=== PATIENT | male | born 1995 | race Hispanic/Latino ===

== ENCOUNTER 2023-11-24 20:20 | Inpatient (IN) | payer OTHER ==
[~2023-11-24] VITALS: Ht 167.6 cm; Wt 62.4 kg
[2023-11-24 21:14] LABS: HEMATOCRIT 44.9 % (42.0-52.0); HEMOGLOBIN 15.7 g/dl (13.5-17.5); MEAN CORPUSCULAR HEMOGLOBIN 29.2 pg (27.0-33.0); MEAN CORPUSCULAR VOLUME 83.6 fl (80.0-96.0); PLATELET COUNT, AUTOMATED 231 10^3/uL (150-450); RED BLOOD COUNT 5.37 10^6/uL (4.30-6.10); WHITE BLOOD COUNT 8.9 10^3/uL (4.0-10.0)
[2023-11-24] MEDS ORDERED: MAALOX 30 ML SUSP *UDC PO ONE (21:25)
[2023-11-24 21:37] LABS: AMPHETAMINES LEVEL URINE NEGATIVE (NEGATIVE); BARBITURATES URINE NEGATIVE (NEGATIVE); BENZODIAZEPINES URINE NEGATIVE (NEGATIVE); COCAINE METABOLITE URINE NEGATIVE (NEGATIVE); METHADONE URINE NEGATIVE (NEGATIVE); OPIATES URINE NEGATIVE (NEGATIVE); PHENCYCLIDINE URINE NEGATIVE (NEGATIVE)
[2023-11-24 21:38] LABS: CANNABINOIDS URINE POSITIVE (NEGATIVE)
[2023-11-24 21:40] LABS: ETHYL ALCOHOL (ETHANOL) < 0.003 % (0.000-0.010)
[2023-11-24 21:42] LABS: ALBUMIN 4.6 G/DL (3.2-5.2); ALKALINE PHOSPHATASE 57 U/L (46-116); ALT/SGPT 26 U/L (7.0-40); AST/SGOT 28 U/L (<34); BILIRUBIN,DIRECT 0.4 MG/DL (<0.4); BILIRUBIN,TOTAL 1.1 MG/DL (0.3-1.2); BLOOD UREA NITROGEN 12 MG/DL (9-23); CALCIUM LEVEL 9.1 MG/DL (8.5-10.1); CARBON DIOXIDE LEVEL 23 MMOL/L (20-31); CHLORIDE LEVEL 109 MMOL/L (98-107); CREATININE FOR GFR 0.79 MG/DL (0.70-1.30); GLOMERULAR FILTRATION RATE > 60.0 (>60); GLUCOSE, FASTING 97 MG/DL (60-100); POTASSIUM SERUM 3.5 MMOL/L (3.5-5.1); SALICYLATE LEVEL < 3.0 MG/DL (<30); SODIUM LEVEL 140 MMOL/L (136-145); TOTAL PROTEIN 7.5 G/DL (5.7-8.2)
[2023-11-24 21:44] LABS: THYROID STIMULATING HORMONE 1.359 uIU/ML (0.55-4.78)
[2023-11-24 22:09] LABS: HIV 1&2 SCREEN NEGATIVE (NEGATIVE)
[2023-11-25] MEDS ORDERED: PANTOPRAZOLE 40MG TAB (PROTONIX) PO ONE (03:50)
[2023-11-25] MEDS ORDERED: SUCRALFATE SUSP 1GM/10ML UD PO ONE (03:50)
[2023-11-25] MEDS ORDERED: TRAZ-186 PO (06:38)
[2023-11-25] MEDS ORDERED: SUMA25TA3 PO (06:38)
[2023-11-25] MEDS ORDERED: DICY20TA20 PO (06:38)
[2023-11-25] MEDS ORDERED: EQL1CAP9 PO (06:38)
[2023-11-25] MEDS ORDERED: HOME MED LIST COMPLETE! XX SCH (06:40)
[2023-11-25] MEDS ORDERED: ACETAMINOPHEN TAB 650MG DOSE (2X325MG) PO PRN (15:25)
[2023-11-25] MEDS ORDERED: MAALOX 30 ML SUSP *UDC PO PRN (15:25)
[2023-11-25] MEDS ORDERED: IBUPROFEN 400MG TAB PO PRN (15:25)
[2023-11-25] MEDS ORDERED: DICYCLOMINE 10 MG CAP PO ONE (19:55)
[2023-11-25 21:31] VITALS: BP 116/77; TEMP 98.5; O2SAT 97
[2023-11-25] MEDS: MOM 30ML SUSPENSION UDC PO PRN (22:35)
[2023-11-26 06:14] VITALS: BP 132/80; TEMP 98.6; O2SAT 99
[2023-11-26] MEDS: LACTOBACILLUS ACIDOPHILUS CAP (BACID) PO SCH (10:11)
[2023-11-26] MEDS: DICYCLOMINE 10 MG CAP PO PRN (10:31)
[2023-11-26] MEDS: OMEPRAZOLE 20MG CAP PO SCH (13:08)
[2023-11-26 16:12] VITALS: BP 115/71; TEMP 98.9; O2SAT 100
[2023-11-26] MEDS ORDERED: MIRALAX *UNIT DOSE* 17GM PACKET PO PRN (17:05)
[2023-11-26] MEDS: DOCUSATE SODIUM 100MG CAPSULE PO PRN (17:12)
[2023-11-26] MEDS: PRAZOSIN 1 MG CAP PO SCH (21:21)
[2023-11-26] MEDS: traZODone 50 MG TAB PO PRN (21:21)
[2023-11-26] MEDS: SERTRALINE HCL 50 MG TAB PO SCH (21:21)
[2023-11-27 03:35] VITALS: BP 158/90; TEMP 97.6; O2SAT 98
[2023-11-27] MEDS ORDERED: LORazepam 0.5 MG TAB PO ONE (04:00)
[2023-11-27] MEDS ORDERED: ONDANSETRON 4MG ORAL DISINTEGRATING TAB SL ONE (04:00)
[2023-11-27] MEDS ORDERED: ONDANSETRON 4MG ORAL DISINTEGRATING TAB SL PRN (04:15)
[2023-11-27 06:17] VITALS: BP 119/58; TEMP 98.1
[2023-11-27] MEDS: OMEPRAZOLE 20MG CAP PO SCH (08:32)
[2023-11-27] MEDS: LACTOBACILLUS ACIDOPHILUS CAP (BACID) PO SCH (08:32)
[2023-11-27] MEDS: DICYCLOMINE 10 MG CAP PO PRN ×2 (09:47→20:47)
[2023-11-27] MEDS: diphenhydrAMINE 25MG CAP PO PRN ×2 (14:05→20:48)
[2023-11-27 15:45] VITALS: BP 117/63; TEMP 98.6; O2SAT 100
[2023-11-27] MEDS: traZODone 50 MG TAB PO PRN (20:49)
[2023-11-27] MEDS: PRAZOSIN 1 MG CAP PO SCH (20:49)
[2023-11-27] MEDS: SERTRALINE HCL 50 MG TAB PO SCH (21:00)
[2023-11-28 06:07] VITALS: BP 135/62; TEMP 97.9; O2SAT 100
[2023-11-28] MEDS: DICYCLOMINE 10 MG CAP PO PRN ×3 (08:25→21:30)
[2023-11-28] MEDS: LACTOBACILLUS ACIDOPHILUS CAP (BACID) PO SCH (08:25)
[2023-11-28] MEDS: OMEPRAZOLE 20MG CAP PO SCH (08:25)
[2023-11-28] MEDS: diphenhydrAMINE 25MG CAP PO PRN ×3 (08:25→21:16)
[2023-11-28] MEDS ORDERED: SERTRALINE HCL 50 MG TAB PO ONE (12:40)
[2023-11-28 16:59] VITALS: BP 147/91; TEMP 97.5; O2SAT 94
[2023-11-28] MEDS: DOCUSATE SODIUM 100MG CAPSULE PO PRN (17:35)
[2023-11-28] MEDS: traZODone 50 MG TAB PO PRN (21:15)
[2023-11-28] MEDS: PRAZOSIN 1 MG CAP PO SCH (21:15)
[2023-11-28] MEDS: SUMAtriptan SUCCINATE 25 MG TAB PO PRN (21:17)
[2023-11-29 06:31] VITALS: BP 125/78; TEMP 98.9; O2SAT 96
[2023-11-29] MEDS: SERTRALINE HCL 50 MG TAB PO SCH (08:30)
[2023-11-29] MEDS: LACTOBACILLUS ACIDOPHILUS CAP (BACID) PO SCH (08:30)
[2023-11-29] MEDS: OMEPRAZOLE 20MG CAP PO SCH (08:30)
[2023-11-29] MEDS: DICYCLOMINE 10 MG CAP PO PRN ×2 (08:31→14:58)
[2023-11-29] MEDS: diphenhydrAMINE 25MG CAP PO PRN (08:31)
[2023-11-29] MEDS: busPIRone 5 MG TAB PO SCH ×2 (09:48→20:15)
[2023-11-29] MEDS: DOCUSATE SODIUM 100MG CAPSULE PO PRN (14:58)
[2023-11-29 19:06] VITALS: BP 140/88; TEMP 98.4; O2SAT 100
[2023-11-29] MEDS: PRAZOSIN 1 MG CAP PO SCH (20:15)
[2023-11-29] MEDS: traZODone 50 MG TAB PO PRN (20:16)
[2023-11-29] MEDS: SUMAtriptan SUCCINATE 25 MG TAB PO PRN (20:52)
[2023-11-30] MEDS: diphenhydrAMINE 25MG CAP PO PRN ×2 (01:58→18:29)
[2023-11-30 06:35] VITALS: BP 141/78; TEMP 99.8; O2SAT 98
[2023-11-30] MEDS: LACTOBACILLUS ACIDOPHILUS CAP (BACID) PO SCH (08:03)
[2023-11-30] MEDS: busPIRone 5 MG TAB PO SCH (08:03)
[2023-11-30] MEDS: SERTRALINE HCL 50 MG TAB PO SCH (08:03)
[2023-11-30] MEDS: DOCUSATE SODIUM 100MG CAPSULE PO PRN (08:03)
[2023-11-30] MEDS: OMEPRAZOLE 20MG CAP PO SCH (08:03)
[2023-11-30] MEDS ORDERED: SENNA 8.6 MG TAB (SENOKOT) PO ONE (09:00)
[2023-11-30] MEDS: DICYCLOMINE 10 MG CAP PO PRN (14:01)
[2023-11-30 19:01] VITALS: BP 143/79; TEMP 98.7
[2023-11-30] MEDS: busPIRone 10 MG TAB PO SCH (21:26)
[2023-11-30] MEDS: traZODone 50 MG TAB PO PRN (21:26)
[2023-11-30] MEDS: PRAZOSIN 1 MG CAP PO SCH (21:27)
[2023-12-01 06:06] VITALS: BP 119/69; TEMP 98.5; O2SAT 100
[2023-12-01] MEDS: LACTOBACILLUS ACIDOPHILUS CAP (BACID) PO SCH (08:29)
[2023-12-01] MEDS: DICYCLOMINE 10 MG CAP PO PRN ×2 (08:30→16:38)
[2023-12-01] MEDS: OMEPRAZOLE 20MG CAP PO SCH (08:30)
[2023-12-01] MEDS: SERTRALINE HCL 50 MG TAB PO SCH (08:30)
[2023-12-01] MEDS: busPIRone 10 MG TAB PO SCH ×2 (08:30→21:21)
[2023-12-01] MEDS ORDERED: OMEP-173 PO (09:58)
[2023-12-01] MEDS ORDERED: SERT50TA29 PO (09:58)
[2023-12-01] MEDS ORDERED: DICY20TA20 PO (09:58)
[2023-12-01] MEDS ORDERED: EQL1CAP9 PO (09:58)
[2023-12-01] MEDS ORDERED: SUMA25TA3 PO (09:58)
[2023-12-01] MEDS ORDERED: DIPH-435 PO (09:58)
[2023-12-01] MEDS ORDERED: MIRA1POW3 PO (09:58)
[2023-12-01] MEDS ORDERED: TRAZ-186 PO (09:58)
[2023-12-01] MEDS ORDERED: BUSP10TA PO (09:58)
[2023-12-01] MEDS ORDERED: COLA100C5 PO (09:58)
[2023-12-01] MEDS ORDERED: PRAZ2CAP PO (09:58)
[2023-12-01] MEDS: MOM 30ML SUSPENSION UDC PO PRN (13:12)
[2023-12-01] MEDS: diphenhydrAMINE 25MG CAP PO PRN (15:37)
[2023-12-01 16:46] VITALS: BP 132/82; TEMP 98.4; O2SAT 97
[2023-12-01 21:21] VITALS: BP 132/82
[2023-12-01] MEDS: PRAZOSIN 1 MG CAP PO SCH (21:21)
[2023-12-01] MEDS: traZODone 50 MG TAB PO PRN (21:21)
[2023-12-02 06:41] VITALS: BP 126/76; TEMP 98.9
[2023-12-02] MEDS: busPIRone 10 MG TAB PO SCH (08:17)
[2023-12-02] MEDS: OMEPRAZOLE 20MG CAP PO SCH (08:17)
[2023-12-02] MEDS: DICYCLOMINE 10 MG CAP PO PRN (08:17)
[2023-12-02] MEDS: LACTOBACILLUS ACIDOPHILUS CAP (BACID) PO SCH (08:17)
[2023-12-02] MEDS: SERTRALINE HCL 50 MG TAB PO SCH (08:17)
== END 2023-12-02 10:59 | disposition home or self-care (01) | DRG 882 ==
LOC: EDBD 20:20 → M ED 20:20 → M ED INP 11-25 15:23 → M PSY 11-25 21:28
PROVIDERS: ADMIT Student in an Organized Health Care Education/Training Program; ATTEND Student in an Organized Health Care Education/Training Program
DX: F43.10 Post-traumatic stress disorder, unspecified (principal); R45.851 Suicidal ideations; F33.2 Major depressive disorder, recurrent severe without psychotic features; F17.200 Nicotine dependence, unspecified, uncomplicated; F12.90 Cannabis use, unspecified, uncomplicated; Z79.899 Other long term (current) drug therapy; K21.9 Gastro-esophageal reflux disease without esophagitis; G43.909 Migraine, unspecified, not intractable, without status migrainosus; K58.8 Other irritable bowel syndrome

== ENCOUNTER 2024-09-02 01:51 | Emergency (ER) | payer OTHER ==
[~2024-09-02] VITALS: Ht 170.2 cm; Wt 65.9 kg
[~2024-09-02 01:51] MED LIST: BUSP10TA PO; COLA100C5 PO; DICY20TA20 PO; DIPH-435 PO; EQL1CAP9 PO; MIRA33506 PO; OMEP-173 PO; PRAZ2CAP PO; SERT50TA29 PO; SUMA25TA3 PO; TRAZ-186 PO
[2024-09-02 01:56] VITALS: TEMP 97.1
[2024-09-02 02:35] LABS: BASO % 0.3 % (0.0-1.0); EOS # 0.1 10^3/uL (0.0-0.5); EOS % 1.5 % (0.0-3.0); HEMATOCRIT 42.1 % (42.0-52.0); HEMOGLOBIN 14.5 g/dl (13.5-17.5); LYMPH # 3.4 10^3/uL (1.5-5.0); LYMPH % 37.3 % (24.0-44.0); MEAN CORPUSCULAR HEMOGLOBIN 29.5 pg (27.0-33.0); MEAN CORPUSCULAR HGB CONC 34.4 g/dl (32.0-36.5); MEAN CORPUSCULAR VOLUME 85.7 fl (80.0-96.0); MONO # 0.8 10^3/uL (0.0-0.8); MONO % 9.1 % (2.0-8.0); NEUTROPHILS # 4.7 10^3/uL (1.5-8.5); NEUTROPHILS % 51.6 % (36.0-66.0); PLATELET COUNT, AUTOMATED 231 10^3/uL (150-450); RED BLOOD COUNT 4.91 10^6/uL (4.30-6.10); WHITE BLOOD COUNT 9.1 10^3/uL (4.0-10.0)
[2024-09-02 02:53] LABS: LIPASE 28 U/L (12-53)
[2024-09-02 02:55] LABS: ALBUMIN 4.2 G/DL (3.2-5.2); ALKALINE PHOSPHATASE 76 U/L (40-129); ALT/SGPT 58 U/L (7.0-40); AST/SGOT 93 U/L (<34); BILIRUBIN,DIRECT 0.2 MG/DL (<0.4); BILIRUBIN,TOTAL 0.6 MG/DL (0.3-1.2); BLOOD UREA NITROGEN 12 MG/DL (9-23); CALCIUM LEVEL 10.1 MG/DL (8.5-10.1); CARBON DIOXIDE LEVEL 27 MMOL/L (20-31); CHLORIDE LEVEL 109 MMOL/L (98-107); GLOMERULAR FILTRATION RATE > 60.0 (>60); GLUCOSE, FASTING 98 MG/DL (60-100); POTASSIUM SERUM 3.9 MMOL/L (3.5-5.1); SODIUM LEVEL 144 MMOL/L (136-145); TOTAL PROTEIN 7.5 G/DL (5.7-8.2)
[2024-09-02] MEDS: KETOROLAC 30 MG/ML 1ML VIAL IV ONE (03:06)
[2024-09-02] MEDS: ONDANSETRON 4MG 2ML VIAL IV ONE (03:06)
[2024-09-02] MEDS: FAMOTIDINE 20MG/2ML VIAL IVP ONE (03:06)
[2024-09-02] MEDS ORDERED: SUCR1TA PO (04:20)
[2024-09-02] MEDS ORDERED: ONDA-282 PO (04:20)
[2024-09-02 04:30] VITALS: BP 111/62; O2SAT 100
== END 2024-09-02 04:34 | disposition home or self-care (01) ==
LOC: M ED 01:51
DX: R10.13 Epigastric pain (principal); K58.9 Irritable bowel syndrome, unspecified; Z79.899 Other long term (current) drug therapy; Z79.83 Long term (current) use of bisphosphonates
CPT/HCPCS: 76705; 80048; 80076; 83690; 85025; 96374; 99284; J1885; J2405; S0028